=== PATIENT | female | born 1995 | race Caucasian/White ===

== ENCOUNTER 2016-11-04 15:49 | Emergency (ER) | payer OTHER ==
[2016-11-04] MEDS ORDERED: Oseltamivir CAP* 75 MG PO ONE (18:37)
--- NOTE | 2016-11-04 18:40 | UC ---
Throat Pain/Nasal Jaylon HPI - HPI Summary HPI Summary: headaches / fever x 1 day + chills, body aches, cough , + nasal congestion - History of Current Complaint Chief Complaint: UCHeadache Stated Complaint: ACHY,MIGRAINE Time Seen by Provider: 11/04/16 18:03 Hx Obtained From: Patient Hx Last Menstrual Period: 10/20/16 Onset/Duration: Sudden Onset, Lasting Days - 1, Still Present Severity: Severe Cough: Nonproductive Associated Signs & Symptoms: Positive: Nasal Discharge, Fever - Allergies/Home Medications Allergies/Adverse Reactions: Allergies Allergy/AdvReac Type Severity Reaction Status Date / Time No Known Allergies Allergy Verified 11/04/16 18:09 PMH/Surg Hx/FS Hx/Imm Hx Previously Healthy: Yes - Surgical History Surgical History: None - Family History Known Family History: Negative: Diabetes - Social History Alcohol Use: Weekly Substance Use Type: None Smoking Status (MU): Never Smoked Tobacco Review of Systems Constitutional: Fever, Chills, Fatigue Skin: Negative Eyes: Negative ENT: Nasal Discharge Respiratory: Cough Cardiovascular: Negative Musculoskeletal: Arthralgia, Myalgia Neurological: Headache All Other Systems Reviewed And Are Negative: Yes Physical Exam Triage Information Reviewed: Yes Appearance: Ill-Appearing, Pain Distress Vital Signs: Initial Vital Signs Temp 100.6 F 11/04/16 18:02 Pulse 112 11/04/16 18:02 Resp 24 11/04/16 18:02 BP 131/89 11/04/16 18:02 Pulse Ox 100 11/04/16 18:02 Vital Signs Reviewed: Yes Eye Exam: Normal Eyes: Positive: Conjunctiva Clear ENT: Positive: Normal ENT inspection, Hearing grossly normal, Pharyngeal erythema, Nasal congestion, Nasal drainage, TMs normal Neck: Positive: Supple, Nontender, No Lymphadenopathy Respiratory: Positive: Chest non-tender, Lungs clear, Normal breath sounds Cardiovascular: Positive: Tachycardia Abdominal Exam: Normal Abdomen Description: Positive: Soft. Negative: Distended, Guarding Bowel Sounds: Positive: Present Neurological: Positive: Lethargic, Other: - anxious Throat Pain/Nasal Course/Dx - Differential Dx/Diagnosis Provider Diagnoses: influenza Discharge - Discharge Plan Condition: Stable Disposition: HOME Prescriptions: Oseltamivir Phosphate [Tamiflu] 75 mg PO BID #10 cap Patient Education Materials: Influenza (ED) Referrals: No Primary Care Phys,NOPCP [Primary Care Provider] - 3 Days Additional Instructions: cont. with rest, increase fluid, Tylenol as needed for pain and fever Tamiflu 2 x per day x 5 days follow up if not better in 3 days
[2016-11-04] MEDS ORDERED: diPHENhydraMINE IV* 50 MG/ML 1 ml VIAL (BENADRYL) IM ONE (18:51)
[2016-11-04] MEDS ORDERED: diPHENhydraMINE IV* 50 MG/ML 1 ml VIAL (BENADRYL) ONE (18:53)
[2016-11-04 18:57] VITALS: BP 113/69
== END 2016-11-04 19:52 | disposition home or self-care (01) ==
LOC: UCCORT 15:49
DX: J11.1 Influenza due to unidentified influenza virus with other respiratory manifestations (principal)
CPT/HCPCS: 87502; 96372; 99202; A9270-GY; G0463; J1200

== ENCOUNTER 2017-07-25 10:09 | Emergency (ER) | payer OTHER ==
[2017-07-25 10:23] VITALS: BP 133/82
--- NOTE | 2017-07-25 11:39 | UC ---
Throat Pain/Nasal Jaylon HPI - HPI Summary HPI Summary: FIVE DAYS OF FEVER, PRODUCTIVE COUGH, BODY ACHES, SINUS CONGESTION, SORE THROAT. - History of Current Complaint Chief Complaint: UCRespiratory Stated Complaint: FEVER COUGH Time Seen by Provider: 07/25/17 10:29 Hx Obtained From: Patient Hx Last Menstrual Period: 07/16/17 Onset/Duration: Gradual Onset, Lasting Days, Still Present Severity: Moderate Pain Intensity: 7 Pain Scale Used: 0-10 Numeric Cough: Productive Associated Signs & Symptoms: Positive: Hoarseness, Sinus Discomfort, Nasal Discharge, Fever - Epiglottits Risk Factors Epiglottis Risk Factors: Negative - Allergies/Home Medications Allergies/Adverse Reactions: Allergies Allergy/AdvReac Type Severity Reaction Status Date / Time No Known Allergies Allergy Verified 11/04/16 18:09 Home Medications: Home Medications Control 1 tab PO DAILY 07/25/17 [History] PMH/Surg Hx/FS Hx/Imm Hx Previously Healthy: Yes - Surgical History Surgical History: None - Family History Known Family History: Negative: Diabetes, Respiratory Disease - Social History Occupation: Student Lives: With Family Alcohol Use: Weekly Substance Use Type: None Smoking Status (MU): Never Smoked Tobacco Review of Systems Constitutional: Fever, Fatigue Skin: Negative Eyes: Negative ENT: Sore Throat, Nasal Discharge, Sinus Congestion Respiratory: Cough Cardiovascular: Negative Gastrointestinal: Negative Genitourinary: Negative Motor: Negative Neurovascular: Negative Musculoskeletal: Negative Neurological: Negative Psychological: Negative Is Patient Immunocompromised?: No All Other Systems Reviewed And Are Negative: Yes Physical Exam Triage Information Reviewed: Yes Appearance: No Pain Distress, Well-Nourished, Ill-Appearing Vital Signs: Initial Vital Signs Temp 98.8 F 07/25/17 10:16 Pulse 120 07/25/17 10:16 Resp 16 07/25/17 10:16 BP 133/82 07/25/17 10:16 Pulse Ox 100 07/25/17 10:16 Vital Signs Reviewed: Yes Eye Exam: Normal ENT: Positive: Pharynx normal, Nasal congestion, Nasal drainage, TM dull Dental Exam: Normal Neck exam: Normal Neck: Positive: Supple, Nontender, No Lymphadenopathy. Negative: Nuchal Rigidity, Tenderness @, Other: - NEGATIVE KERNIGS, Respiratory Exam: Other - COUGH Respiratory: Positive: Chest non-tender, Lungs clear, Normal breath sounds, No respiratory distress, No accessory muscle use Cardiovascular Exam: Normal Cardiovascular: Positive: RRR, No Murmur, Pulses Normal Abdominal Exam: Normal Musculoskeletal Exam: Normal Musculoskeletal: Positive: Strength Intact, ROM Intact Neurological Exam: Normal Psychological Exam: Normal Skin Exam: Normal Throat Pain/Nasal Course/Dx - Differential Dx/Diagnosis Differential Diagnosis/HQI/PQRI: Pharyngitis, Sinusitis, URI Provider Diagnoses: SINUSITIS; BRONCHITIS Discharge - Discharge Plan Condition: Stable Disposition: HOME Prescriptions: Azithromycin TAB* [Zithromax TAB (Z-EVELYN) 250 mg #6 tabs] 250 mg PO DAILY #6 tab Benzonatate CAP* [Tessalon 100 MG CAP*] 100 mg PO TID PRN #15 cap PRN Reason: Cough Patient Education Materials: Sinusitis (ED), Acute Bronchitis (ED) Forms: *School Release Referrals: [facility] [place] [facility] [Outside] No Primary Care Phys,NOPCP [Primary Care Provider] -
== END 2017-07-25 11:08 | disposition home or self-care (01) ==
LOC: UCCORT 10:09
DX: J40 Bronchitis, not specified as acute or chronic (principal); J32.9 Chronic sinusitis, unspecified
CPT/HCPCS: 87502; 99212; G0463

== ENCOUNTER 2017-08-08 11:14 | Emergency (ER) | payer OTHER ==
[2017-08-08 11:36] VITALS: BP 131/78
--- NOTE | 2017-08-08 11:41 | UC ---
Skin Complaint HPI - HPI Summary HPI Summary: 22 y/o female presents to the urgent care c/o a rash in both arms, chest , neck abdomen and back for the past 5 days. Pt reports she was recently on 08/04/2017 here with lip swelling Dx with allergic RXTN. However, rash is getting worse since yesterday with a lot of itchiness. Pt Has been taking Benadryl PO to alleviate symptoms. Pt denies fever, joint pain, SOB, chest pain, abdominal pain , N/V/D - History of Current Complaint Chief Complaint: UCRash Time Seen by Provider: 08/08/17 11:39 Stated Complaint: SKIN COMPLAINT Hx Obtained From: Patient Hx Last Menstrual Period: 07/08/17 ?: No Onset/Duration: Gradual Onset, Lasting Days - 5 days, Still Present Skin Exposure Onset/Duration: Days Ago - 5 days Timing: Constant Onset Severity: Mild Current Severity: Moderate Pain Intensity: 0 Pain Scale Used: 0-10 Numeric Location: Diffuse - B/L arms, chest, back abdomen and neck Character: Pruritus, Redness Aggravating Factor(s): Touch Alleviating Factor(s): Antihistamines Associated Signs & Symptoms: Positive: Negative. Negative: Nausea, Vomiting, Fever, Tenderness, Red Streaks Related History: Possible Reaction to: Environmental Exposure - Allergy/Home Medications Allergies/Adverse Reactions: Allergies Allergy/AdvReac Type Severity Reaction Status Date / Time No Known Allergies Allergy Verified 08/08/17 11:25 Review of Systems Constitutional: Negative - diffuse in the body with itchiness Skin: Rash Eyes: Negative ENT: Negative Respiratory: Negative Cardiovascular: Negative Gastrointestinal: Negative Genitourinary: Negative Motor: Negative Neurovascular: Negative Musculoskeletal: Negative Neurological: Negative Psychological: Negative Is Patient Immunocompromised?: No All Other Systems Reviewed And Are Negative: Yes PMH/Surg Hx/FS Hx/Imm Hx Previously Healthy: Yes - Pt denies PMHX - Surgical History Surgical History: None - Family History Known Family History: Positive: Diabetes Negative: Respiratory Disease - Social History Occupation: Employed Full-time, Student Lives: With Family Alcohol Use: Occasionally Substance Use Type: None Smoking Status (MU): Never Smoked Tobacco - Immunization History Vaccination Up to Date: Yes Physical Exam Triage Information Reviewed: Yes Vital Signs: Initial Vital Signs Temp 98.5 F 08/08/17 11:29 Pulse 97 08/08/17 11:29 Resp 16 08/08/17 11:29 BP 131/78 08/08/17 11:29 Pulse Ox 100 08/08/17 11:29 - Additional Comments Vital Signs Reviewed: Yes General: well developed, well nourished female sitting in the examining table w/ o any apparent distress Eye Exam: Normal Eyes: Positive: Conjunctiva Clear - PERRLA, EOMI, fundi grossly normal ENT: Positive: Normal ENT inspection, Hearing grossly normal, Pharynx normal, TMs normal Neck: Positive: Supple, Nontender, No Lymphadenopathy Respiratory: Positive: Chest non-tender, Lungs clear, Normal breath sounds, No respiratory distress Cardiovascular: Positive: RRR, No Murmur, Pulses Normal, Brisk Capillary Refill Abdomen Description: Positive: Nontender, No Organomegaly, Soft. Negative: CVA Tenderness (R), CVA Tenderness (L) Bowel Sounds: Positive: Present Musculoskeletal: Positive: Strength Intact, ROM Intact, No Edema Neurological: Positive: Alert, Muscle Tone Normal Psychological Exam: Normal Skin: Positive: maculopapular erythematous eruption in B/L arms, abdomen, chest , neck and back, sparing face, legs, palms and soled. warm to touch , non tender to palpation and signs of scoriation. Course/Dx - Course Course Of Treatment: 22 y/o female presents to the urgent care c/o a rash in both arms, chest , neck abdomen and back for the past 5 days. Pt reports she was recently on 08/04/2017 here with lip swelling Dx with allergic RXTN. However , rash is getting worse since yesterday with a lot of itchiness. Pt Has been taking Benadryl PO to alleviate symptoms. Pt denies fever, joint pain, SOB, chest pain, abdominal pain, N/V/D Hx obtained. Pt with a maculopapular eruption in both arms, abdomen, neck, chest, and back. Most likely an allergic reaction. Pt - Differential Diagnoses - Skin Complaint Differential Diagnoses: Allergic Reaction, Contact Dermatitis, Eczema, Local Allergic Reaction, Tick Born Illness, Urticaria, Viral Exanthem - Diagnoses Provider Diagnoses: 1- unspecified rash probably allergic reaction Discharge - Discharge Plan Condition: Stable Disposition: HOME Prescriptions: Calamine/Pramoxine LOTION* [Caladryl LOTION*] 1 applic .SEE ORDER BID #1 btl diPHENhydraMINE PO* [Benadryl PO 25 MG TAB*] 25 mg PO TID PRN #21 tab PRN Reason: Pruritis Hydrocortisone 1% CREAM* [Hytone Cream 1%*] 1 applic TOPICAL BID #1 tube predniSONE TAB* [Deltasone TAB*] 20 mg PO DAILY #18 tab Patient Education Materials: Acute Rash (ED) Referrals: No Primary Care Phys,NOPCP [Primary Care Provider] - [facility] [place] [facility] [Outside] Additional Instructions: 1-Please apply topical medication as directed. 2-Take Prednisone PO and Benadryl PO as directed . 3-If symptoms do not improve or worsen please f/u with your PCP or return to the urgent care for further evaluation and treatment.
== END 2017-08-08 12:12 | disposition home or self-care (01) ==
LOC: UCCORT 11:14
DX: R21 Rash and other nonspecific skin eruption (principal)
CPT/HCPCS: 99212; G0463